=== PATIENT | female | born 1985 | race Caucasian/White ===

== ENCOUNTER 2017-02-07 13:38 | Emergency (ER) | payer OTHER ==
[2017-02-07 14:16] VITALS: BP 111/56
--- NOTE | 2017-02-07 15:12 | RAD ---
HISTORY: Right knee injury COMPARISONS: None VIEWS: 4, Frontal, lateral, axial, and oblique views of the right knee FINDINGS: BONE DENSITY: Normal. BONES: There is no displaced fracture. JOINTS: There is mild medial compartment and patellofemoral osteophyte formation. There is a moderate suprapatellar joint effusion. There is no lipohemarthrosis. ALIGNMENT: There is no dislocation. SOFT TISSUES: Unremarkable. OTHER FINDINGS: None. IMPRESSION: JOINT EFFUSION. NO ACUTE OSSEOUS INJURY. IF SYMPTOMS PERSIST, RECOMMEND REPEAT IMAGING.
--- NOTE | 2017-02-07 15:18 | UC ---
Knee Pain HPI - HPI Summary HPI Summary: 31 YO FEMALE WITH THE ONSET OF RIGHT KNEE PAIN 2 DAYS AGO AFTER USING A TREADMILL NO SPECIFIC INJURY RECALLED KNEE STARTED TO SWELL ABOUT 15 MINUTES AFTER USING TREADMILL HURTS TO EXTEND BRIGID - History of Current Complaint Chief Complaint: UCLowerExtremity Stated Complaint: KNEE INJURY Time Seen by Provider: 02/07/17 14:40 Hx Obtained From: Patient Hx Last Menstrual Period: 01/27/17-01/30/17 Onset/Duration: Gradual Onset, Lasting Days Severity Initially: Moderate Severity Currently: Moderate Pain Intensity: 4 Pain Scale Used: 0-10 Numeric Character: Dull, Aching, Throbbing Aggravating Factor(s): Movement, Weight Bearing, Prolonged Standing, Stairs Alleviating Factor(s): Rest Associated Signs And Symptoms: Positive: Swelling Able to Bear Weight: Yes - Allergies/Home Medications Allergies/Adverse Reactions: Allergies Allergy/AdvReac Type Severity Reaction Status Date / Time Seasonal Allergies Allergy Eyes Uncoded 02/07/17 14:16 Itchy/Swollen/Red/Watery Home Medications: Home Medications Fluticasone NASAL SPRAY 50MCG* [Flonase NASAL SPRAY 50MCG*] 1 spray BOTH NARES DAILY 02/07/17 [History Confirmed 02/07/17] Norgestimate-Ethinyl Estradiol [Lvq-Dp-Fadkyx 0.18/0.215/0.25 mg-25 Mcg] 1 tab PO DAILY 02/07/17 [History Confirmed 02/07/17] PMH/Surg Hx/FS Hx/Imm Hx Previously Healthy: Yes - Surgical History Surgical History: Yes Surgery Procedure, Year, and Place: , breast augmentation - Family History Known Family History: Positive: Hypertension - Social History Alcohol Use: Occasionally Alcohol Amount: 3-4x week Substance Use Type: None Smoking Status (MU): Never Smoked Tobacco Review of Systems Constitutional: Negative Skin: Negative Eyes: Negative ENT: Negative Respiratory: Negative Cardiovascular: Negative Gastrointestinal: Negative Genitourinary: Negative Motor: Negative Neurovascular: Negative Musculoskeletal: Arthralgia Neurological: Negative Psychological: Negative Is Patient Immunocompromised?: No All Other Systems Reviewed And Are Negative: Yes Physical Exam Triage Information Reviewed: Yes Appearance: Well-Appearing, No Pain Distress, Well-Nourished Vital Signs: Initial Vital Signs Temp 99.1 F 02/07/17 14:09 Pulse 69 02/07/17 14:09 Resp 18 02/07/17 14:09 BP 111/56 02/07/17 14:09 Pulse Ox 99 02/07/17 14:09 Vital Signs Reviewed: Yes Eyes: Positive: Conjunctiva Clear ENT: Positive: Hearing grossly normal. Negative: Nasal congestion, Nasal drainage, Tonsillar exudate, Trismus, Muffled/hoarse voice Neck: Positive: Supple, Nontender Respiratory: Positive: Lungs clear, Normal breath sounds, No respiratory distress, No accessory muscle use Cardiovascular: Positive: RRR, No Murmur Musculoskeletal: Positive: Edema @ - EFFUSION RIGTH KNEE Knee Pain Course/Dx - Differential Dx/Diagnosis Provider Diagnoses: right knee injury. suspect medial meniscus Discharge - Discharge Plan Condition: Stable Disposition: HOME Patient Education Materials: Meniscus Tear (ED) Referrals: [facility] [Outside] - As Soon As Possible Additional Instructions: REST ELEVATE ICE ADVIL OR ALEVE KNEE IMMOBILIZER Images Front/Back of Body, Lg (Bryan): 1 - EFFUSION/TENDER MEDIAL JOINT LINE/PAIN WITH FULL EXTENSION
== END 2017-02-07 15:27 | disposition home or self-care (01) ==
LOC: UCEAST 13:38
DX: S89.91XA Unspecified injury of right lower leg, initial encounter (principal); X58.XXXA Exposure to other specified factors, initial encounter; Y93.A1 Activity, exercise machines primarily for cardiorespiratory conditioning; Y92.9 Unspecified place or not applicable
CPT/HCPCS: 99211; G0463

== ENCOUNTER 2021-08-26 02:44 | Inpatient (IN) ==
[2021-08-26] MEDS ORDERED: Lactated Ringers 1000 ml BAG 1,000 ML IV ONE (03:35)
[2021-08-26] MEDS ORDERED: ceFOXitin 2 GM IVPREMIX 2 GM/50 ML BAG IVPB ONE (03:35)
[2021-08-26] MEDS ORDERED: Buffered Lidocaine 1% SYRIN 1 ml INTRADERM ONE (03:35)
[2021-08-26] MEDS ORDERED: Sodium Citrate/Citric Acid LIQ 15 ML UDC PO ONE (03:35)
[2021-08-26 03:50] LABS: ABS Basophils 0.1 10^3/ul (0-0.2); ABS Eosinophils 0.1 10^3/ul (0-0.6); ABS Lymphocytes 3.1 10^3/ul (1.0-4.8); ABS Monocytes 0.9 10^3/ul (0-0.8); ABS Neutrophils 6.6 10^3/ul (1.5-7.7); Eosinophil % 0.9 %; Hematocrit 37 % (35-47); Hemoglobin 13.1 g/dL (12.0-16.0); Lymphocyte % 28.5 %; Mean Corpuscular HGB Conc 36 g/dL (31-36); Mean Corpuscular Hemoglobin 31 pg (27-31); Mean Corpuscular Volume 88 fL (80-97); Platelet Count 207 10^3/uL (150-450); Red Blood Count 4.22 10^6 /uL (3.70-4.87); Red Cell Distribution Width 15 % (10-15); White Blood Count 10.7 10^3/uL (3.5-10.8)
[2021-08-26] MEDS ORDERED: Lactated Ringers 1000 ml BAG 1,000 ML IV SCH ×2 (04:00→07:00)
[2021-08-26] MEDS ORDERED: Morphine PF AMP (0.5MG/ML) 5 MG/10 ML AMP ONE (04:36)
[2021-08-26] MEDS ORDERED: Ondansetron 4 mg VIAL 2 MG/ML 2 ml VIAL ONE (04:36)
[2021-08-26] MEDS ORDERED: Oxytocin 10 UNITS/ML 1 ML VIAL ONE (04:36)
[2021-08-26] MEDS ORDERED: Phenylephrine 40 mcg/mL 10mL (400mcg) SYRINGE ONE (04:38)
[2021-08-26] MEDS ORDERED: DiMENhydriNATE IV 50 mg/ml 1 ml VIAL IV PUSH PRN (05:36)
[2021-08-26] MEDS ORDERED: Ondansetron 4 mg VIAL 2 MG/ML 2 ml VIAL IV PRN (05:36)
[2021-08-26] MEDS ORDERED: Naloxone 0.4 mg VIAL 0.4 mg/ml 1 ml VIAL IV PRN (05:36)
[2021-08-26] MEDS ORDERED: Acetaminophen IV 1 GM/100ML 100 ML IV ONE (05:37)
[2021-08-26] MEDS ORDERED: Witch Hazel PAD JAR TOPICAL PRN (06:08)
[2021-08-26] MEDS ORDERED: Dibucaine 1% OINT 28.35 GM TUBE PR PRN (06:08)
[2021-08-26] MEDS ORDERED: Glycerin ADULT 2.4 gm SUPP PR PRN (06:08)
[2021-08-26 06:11] LABS: Urine Benzodiazepine Screen None Detected (None Detect); Urine Cannabinoids Screen None Detected (None Detect); Urine Opiates Screen None Detected (None Detect)
[2021-08-26] MEDS ORDERED: Oxytocin in LR 20 UNITS/1,000 ML BAG IVPB SCH (07:00)
[2021-08-27 06:31] LABS: ABS Eosinophils 0.1 10^3/ul (0-0.6); ABS Lymphocytes 1.7 10^3/ul (1.0-4.8); ABS Monocytes 0.9 10^3/ul (0-0.8); ABS Neutrophils 8.2 10^3/ul (1.5-7.7); Eosinophil % 0.7 %; Hematocrit 31 % (35-47); Hemoglobin 10.6 g/dL (12.0-16.0); Lymphocyte % 15.8 %; Mean Corpuscular HGB Conc 35 g/dL (31-36); Mean Corpuscular Hemoglobin 31 pg (27-31); Mean Corpuscular Volume 89 fL (80-97); Mean Platelet Volume 7.7 fL (7.4-10.4); Platelet Count 176 10^3/uL (150-450); Red Blood Count 3.46 10^6 /uL (3.70-4.87); Red Cell Distribution Width 16 % (10-15); White Blood Count 10.9 10^3/uL (3.5-10.8)
[2021-08-27 17:05] LABS: Urine Appearance Cloudy; Urine Bilirubin Negative (Negative); Urine Blood Negative (Negative); Urine Color Yellow; Urine Glucose Negative (Negative); Urine Ketones Trace (Negative); Urine Nitrite Negative (Negative); Urine Protein Negative (Negative); Urine Specific Gravity 1.019 (1.002-1.030); Urine Urobilinogen Negative (Negative)
[2021-08-28 07:51] VITALS: BP 111/65
== END 2021-08-28 14:20 | disposition home or self-care (01) | DRG 788 ==
LOC: MCHOBOUT 02:44 → MCHOB 03:36
PROVIDERS: ADMIT Obstetrics & Gynecology; ATTEND Obstetrics & Gynecology

== ENCOUNTER 2023-12-01 05:28 | Inpatient (IN) ==
[2023-12-01] MEDS: Buffered Lidocaine 1% SYRIN 1 ml INTRADERM ONE (05:58)
[2023-12-01] MEDS: ceFOXitin 2 GM IVPREMIX 2 GM/50 ML BAG IVPB ONE (06:00)
[2023-12-01] MEDS: Sodium Citrate/Citric Acid LIQ 15 ML UDC PO ONE (06:01)
[2023-12-01] MEDS: Lactated Ringers 1000 ml BAG 1,000 ML IV ONE (06:04)
[2023-12-01 06:41] LABS: Urine Benzodiazepine Screen None Detected (None Detect); Urine Cannabinoids Screen None Detected (None Detect); Urine Opiates Screen None Detected (None Detect)
[2023-12-01 06:57] LABS: ABS Eosinophils 0.1 10^3/uL (0.0-0.5); ABS Lymphocytes 2.3 10^3/uL (1.0-4.8); ABS Monocytes 0.8 10^3/uL (0.0-0.9); ABS Neutrophils 6.8 10^3/uL (1.5-7.6); ABS Nucleated RBC 0.01 10^3/ul; Hematocrit 38.4 % (35-45); Hemoglobin 13.4 g/dL (11.5-14.3); Lymphocyte % 23.1 %; Mean Corpuscular Hemoglobin 32.7 pg (27-33); Mean Corpuscular Hgb Conc 34.8 g/dL (31-36); Mean Corpuscular Volume 93.8 fL (80-97); Mean Platelet Volume 8.4 fL (7.5-11.2); Nucleated Red Blood Cells % 0.1 %/100WBC (0.0-0.8); Platelet Count 203 10^3/uL (150-450); Red Cell Distribution Width 13.8 % (12-17)
[2023-12-01] MEDS: Lactated Ringers 1000 ml BAG 1,000 ML IV SCH (07:05)
[2023-12-01] MEDS ORDERED: Morphine PF AMP (0.5MG/ML) 5 MG/10 ML AMP ONE (07:55)
[2023-12-01] MEDS ORDERED: Phenylephrine 40 mcg/mL 10mL (400mcg) SYRINGE ONE (07:55)
[2023-12-01] MEDS ORDERED: Oxytocin 10 UNITS/ML 1 ML VIAL ONE (07:58)
[2023-12-01] MEDS ORDERED: Dibucaine 1% OINT 28.35 GM TUBE PR PRN (08:14)
[2023-12-01] MEDS ORDERED: Witch Hazel PAD JAR TOPICAL PRN (08:14)
[2023-12-01] MEDS ORDERED: Glycerin ADULT 2.4 gm SUPP PR PRN (08:14)
[2023-12-01] MEDS ORDERED: Lactated Ringers 1000 ml BAG 1,000 ML IV SCH (09:00)
[2023-12-01] MEDS ORDERED: Naloxone 0.4 mg VIAL 0.4 mg/ml 1 ml VIAL IV PRN (09:01)
[2023-12-01] MEDS ORDERED: Metoclopramide 5 MG/ML VIAL (10 mg) IV PRN (09:02)
[2023-12-01] MEDS ORDERED: Naloxone 0.4 mg VIAL 0.4 mg/ml 1 ml VIAL IV PUSH PRN (09:02)
[2023-12-01] MEDS ORDERED: Ondansetron 4 mg VIAL 2 MG/ML 2 ml VIAL IV PRN (09:02)
[2023-12-01] MEDS ORDERED: Dexamethasone IV 4 MG/ML VIAL 1 ml VIAL ONE (09:31)
[2023-12-01] MEDS ORDERED: Ondansetron 4 mg VIAL 2 MG/ML 2 ml VIAL ONE (09:31)
[2023-12-01] MEDS: Acetaminophen IV 1 GM/100ML 1,000 MG/100 ML BAG IV PRN (10:15)
[2023-12-01 11:27] LABS: Urine Appearance Clear; Urine Bilirubin Negative (Negative); Urine Blood Negative (Negative); Urine Color Light-Yellow; Urine Glucose Negative (Negative); Urine Ketones Negative (Negative); Urine Nitrite Negative (Negative); Urine Protein Negative (Negative); Urine Urobilinogen Negative (Negative); Urine pH 7.5 (5.0-8.0)
[2023-12-01] MEDS: Oxytocin in LR 20,000 MILLI.UNIT/1,000 ML BAG IV SCH (13:32)
[2023-12-02 06:36] LABS: ABS Eosinophils 0.1 10^3/uL (0.0-0.5); ABS Lymphocytes 1.9 10^3/uL (1.0-4.8); ABS Neutrophils 8.9 10^3/uL (1.5-7.6); Eosinophil % 0.6 %; Hematocrit 33.2 % (35-45); Hemoglobin 11.6 g/dL (11.5-14.3); Lymphocyte % 16.2 %; Mean Corpuscular Hemoglobin 33.2 pg (27-33); Mean Corpuscular Hgb Conc 34.9 g/dL (31-36); Mean Platelet Volume 7.9 fL (7.5-11.2); Platelet Count 167 10^3/uL (150-450); Red Cell Distribution Width 14.1 % (12-17); White Blood Count 11.9 10^3/uL (3.8-11.8)
[2023-12-03 08:35] VITALS: BP 111/61
== END 2023-12-03 13:17 | disposition home or self-care (01) | DRG 785 ==
LOC: MCHOB 05:28
PROVIDERS: ADMIT Obstetrics & Gynecology; ATTEND Obstetrics & Gynecology